=== PATIENT | female | born 1950 | race Caucasian/White ===

== ENCOUNTER 2017-04-09 09:40 | Emergency (ER) | payer MEDICARE, BC ==
[~2017-04-09 09:40] MED LIST: ACIDOPHILUS1 CAP; ACIPHEX20 MG; ALBUTEROL0.83 MG/ML INH; ALIGN4 M1 PO; ALIGN4 MG PO; AMBIEN CR12.5 MG/BO; AMBIEN10 MG; ATENOLOL25 M1 PO; ATENOLOL25 MG; ATENOLOL25 MG PO; ATIVAN1 M1 PO; ATIVAN1 M2 PO; ATIVAN1 MG; ATIVAN2 M1 PO; ATIVAN2 MG PO; AUGMENTIN500 MG PO; AUGMENTIN875 MG PO; AZITHROMYCIN250 MG PO; BENADRYL25 MG PO; CALCIUM + D T1 UDTAB; CALCIUM + VITA1 EACH PO; CALCIUM 600 +1 EAC4 PO; CALCIUM 600+D1 EAC5 PO; CALCIUM 600+D1 EACH PO; CATAPRES0.1 MG; CATAPRES0.3 MG; CEFTIN500 MG PO; CELEXA20 MG; CELEXA20 MG PO; CITALOPRAM HBR40 MG PO; CLINDAMYCIN HC150 MG PO; CLONIDINE HCL0.1 MG; COMBIVENT INH14.7 GM; COUMADIN2.5 MG; COUMADIN2.5 MG PO; COUMADIN3 MG; COUMADIN3 MG PO; COUMADIN5 M1 PO; COUMADIN5 M2 PO; COUMADIN5 MG PO; CYMBALTA30 M1 PO; CYMBALTA60 MG PO; DAPSONE100 MG; DARVOCET-N 1001 TAB; DICYCLOMINE HCL10 M1 PO; DURAGESIC1 PATCH .; FAMCICLOVIR500 M1 PO; FENTANYL1 PATCH .; FLEXERIL PO; FLEXERIL10 MG; GABAPENTIN100 MG PO; GABAPENTIN300 M1 PO; GABAPENTIN300 MG PO; GLUCOPHAGE500 M3 PO; GLUCOPHAGE500 MG PO; GLUCOPHAGE850 MG PO; HYDROXYCHLOROQ200 M1 PO; HYDROXYCHLOROQ200 M2 PO; HYDROXYCHLOROQ200 MG PO; HYOMAX0.125 MG PO; HYOSCYAMINE0.125 M2 PO; INVOCANA PO; KEFLEX500 MG; KEFLEX500 MG PO; LANTUS100 UNITS/ SC; LEVOFLOXACIN500 M1 PO; LEVSIN0.125 MG PO; LOCOID 0.1% LIP45 GM TP; LORAZEPAM1 MG; LORAZEPAM2 MG; LORAZEPAM2 MG PO; LOVASTATIN; LOVASTATIN PO; LOVASTATIN20 M2 PO; LOVASTATIN20 MG; LOVASTATIN20 MG PO; LOVENOX100 MG/1 M SQ; METFORMIN HCL850 MG PO; METFORMIN PO; METHADONE HCL10 MG PO; METHADONE HCL5 M2 PO; METHADONE HCL5 MG PO; METHADONE5 MG; METHADONE5 MG PO; MEVACOR20 MG; MICARDIS; MICARDIS HCT 401 TAB; MICARDIS40 MG; MICARDIS40 MG PO; MICARDIS80 M1 PO; MULTI-VITAMIN1 TAB; MULTIVITAMIN1 TAB; MULTIVITAMIN1 TAB PO; MYCOPHENOLIC A360 M1 PO; NASONEX17 GM; NEXIUM20 M1 PO; NORCO 10/325 TA1 TAB PO; NORCO 10/3251 TAB PO; NORCO 5/325 TAB1 TAB PO; OMEPRAZOLE PO; OMEPRAZOLE20 M2 PO; OMEPRAZOLE20 M4 PO; OXYGEN; PERCOCET 5-3251 EACH PO; PLAQUENIL200 MG; PLAQUENIL200 MG PO; PREVACID PO; PREVACID15 M1 PO; PREVACID30 MG PO; PROBIOTIC1 EACH PO; PROGRAF1 M1 PO; PROGRAF1 MG; PROGRAF1 MG PO; PROMETHAZINE25 MG; PROMETHAZINE25 MG PO; PROTONIX20 MG; PROTONIX20 MG PO; PYRIDIUM100 MG; RAPAMUNE1 MG; RAPAMUNE1 MG PO; RAPAMUNE2 MG; SALINE NASAL SP30 ML; SYMBICORT 16010.2 GM IH; TENORMIN25 MG; TYLENOL325 M2 PO; TYLENOL325 MG; TYLENOL325 MG PO; TYLENOL650 MG PO; VALSARTAN320 MG PO; VENTOLIN HFA18 G1 IH; VITAMIN D1000 UNI1; VITAMIN D1000 UNIT PO; VITAMIN D31000 UNI4 PO; VITAMIN D31000 UNIT PO; WAL-DRYL25 MG PO; ZITHROMAX500 M1 PO; ZOFRAN ODT8 MG/TAB PO; [UNRECOGNIZED DRUG - OTHER]; [UNRECOGNIZED DRUG - OTHER]; [UNRECOGNIZED DRUG - OTHER]; [UNRECOGNIZED DRUG - OTHER] PO
[2017-04-09] MEDS ORDERED: OMEPRAZOLE40 M2 PO (10:19)
[2017-04-09] MEDS ORDERED: NORVASC10 M2 PO (10:20)
[2017-04-09] MEDS ORDERED: ASPIRIN325 M3 PO (10:22)
[2017-04-09] MEDS ORDERED: PROBIOTIC1 EA10 PO (10:24)
[2017-04-09] MEDS ORDERED: TOPROL XL100 M1 PO (10:25)
[2017-04-09] MEDS ORDERED: VITAMIN D31000 UNI3 PO (10:26)
[2017-04-09] MEDS ORDERED: LASIX40 M1 PO (10:27)
[2017-04-09] MEDS ORDERED: CENTRUM SILVER1 EAC3 PO (10:28)
[2017-04-09] MEDS ORDERED: PRAVASTATIN SOD20 M1 PO (10:29)
[2017-04-09] MEDS ORDERED: TRAZODONE HCL50 M1 PO (10:29)
[2017-04-09] MEDS ORDERED: RAPAMUNE1 M1 PO (10:32)
[2017-04-09 10:39] LABS: INR 4.3 INR (0.9-1.1); PROTHROMBIN TIME 52.6 SECONDS (9.0-13.6)
[2017-04-09] MEDS ORDERED: TACROLIMUS0.5 M1 PO (10:44)
[2017-04-09] MEDS ORDERED: PROGRAF1 M1 PO (10:45)
[2017-04-09] MEDS ORDERED: TYLENOL EXTRA500 M1 PO (10:45)
[2017-04-09] MEDS ORDERED: POTASSIUM99 M4 PO (10:46)
[2017-04-09] MEDS ORDERED: CRANBERRY TABL1 EAC1 PO (10:46)
[2017-06-20] MEDS ORDERED: TAMIFLU PO (12:03)
[2017-06-20] MEDS ORDERED: MUCINEX600 M1 PO (12:06)
[2017-06-20] MEDS ORDERED: ZITHROMAX500 M2 PO (12:14)
== END 2017-04-09 11:54 ==
LOC: EDMED 09:40
PROVIDERS: Emergency Medicine
DX: M79.662 Pain in left lower leg (principal); E11.9 Type 2 diabetes mellitus without complications; I10 Essential (primary) hypertension; E78.5 Hyperlipidemia, unspecified; Z88.2 Allergy status to sulfonamides; Z88.8 Allergy status to other drugs, medicaments and biological substances